=== PATIENT | female | born 1995 | race Caucasian/White ===

== ENCOUNTER 2017-03-02 11:44 | Emergency (ER) | payer BC, OTHER ==
[2017-03-02 11:51] VITALS: O2SAT 98
[2017-03-02] MEDS ORDERED: NS 1,000 ML IV ONE (12:56)
[2017-03-02] MEDS ORDERED: KETOROLAC 30 MG/1 ML SDV IVP ONE (12:56)
[2017-03-02] MEDS ORDERED: ONDANSETRON 4 MG/2 ML VIAL IVP ONE (12:56)
--- NOTE | 2017-03-02 13:00 | EDPHY ---
H & P Stated Complaint: Abd cramping, n/v; normal BM today;recent foreign travel Time Seen by Provider: 03/02/17 12:43 HPI/ROS: CHIEF COMPLAINT: Vomiting HISTORY OF PRESENT ILLNESS: This is a generally healthy 21-year-old female who presents with 3 days of nausea and vomiting. She had diarrhea on the 1st day of this illness, none since. She went 2 days without having a bowel movement and this morning had a loose stool. She has not seen blood in her stool. She has not had fever. She reports crampy abdominal pain and some low back pain. She has had headache on and off, none presently. Her headache is global and relieved by ibuprofen. She denies urinary symptoms. She does have some cramping in her upper thighs bilaterally. She returned from [place] 4 days ago. She was there for 6 weeks and traveled in the [place] early on during her trip. She was last in [place]. REVIEW OF SYSTEMS: A ten point review of systems was performed and is negative with the exception of the items mentioned in the HPI. Source: Patient Exam Limitations: No limitations - Personal History LMP (Females 10-55): 8-14 Days Ago Current Tetanus Diphtheria and Acellular Pertussis (TDAP): Yes - Medical/Surgical History Other PMH: healthy - Social History Smoking Status: Never smoked Alcohol Use: Occasionally Additional Social History: She is a student at the [employer]. Her father accompanies her today. - Physical Exam Exam: General Appearance: Alert. Vital signs reviewed. Blood pressure 125/66. Heart rate normal. Afebrile. Eyes: Pupils equal and round, no conjunctival injection, no discharge. Anicteric. ENT, Mouth: Mucous membranes are dry no oropharyngeal erythema or edema. Neck: No lymphadenopathy, supple. No meningeal signs. Respiratory: Lungs are clear to auscultation; no wheezes, rales, or rhonchi. Cardiovascular: Regular rate and rhythm; no murmur, rub, or gallop. Gastrointestinal: Abdomen is soft and nontender, no masses or organomegaly, bowel sounds normal. Skin: Warm and dry, no rashes on exposed skin, normal color. Back: Nontender to palpation over the thoracolumbar spine. No CVAT. Extremities: No lower extremity edema, no calf tenderness or swelling. Neurological: Alert and oriented. Moving all four extremities easily and equally. Psychiatric: Normal affect. Constitutional: Initial Vital Signs Temperature (C) 36.9 C 03/02/17 11:49 Heart Rate 79 03/02/17 11:49 Respiratory Rate 18 03/02/17 11:49 Blood Pressure 125/66 H 03/02/17 11:49 O2 Sat (%) 98 03/02/17 11:49 O2 Delivery Mode Room Air Allergies/Adverse Reactions: No Known Allergies Allergy (Unverified 03/02/17 11:51) Home Medications: Medication Instructions Recorded Ondansetron Odt [Zofran Odt 4 mg 4 mg PO Q4 PRN #10 tab 03/02/17 (RX)] Medical Decision Making ED Course/Re-evaluation: Healthy 21-year-old who recently returned from [place] and has had 3 days of nausea and vomiting. She does not have fever. She does not have abdominal pain on exam. No diarrhea at present. No headache at present. I do not suspect meningitis given this history and her physical examination. She is being given 1 L normal saline IV. She will receive Zofran 4 mg IV and Toradol 15 mg for leg cramps. Blood work sent. Blood work is normal except for a very mild elevation in her white blood cell count, just over 10,000. Urinalysis is normal. Chemistries are normal. test is negative. She has not had vomiting in the emergency department. Repeated exam shows that her abdomen remains soft and nontender. I suspect that this is a viral illness. I do not think that it is related to her recent travel. She is not having diarrhea. She has been rehydrated with normal saline intravenously and feels better. Differential Diagnosis: Differential diagnosis includes but is not limited to gastritis, pancreatitis, appendicitis, urinary tract infection, pyelonephritis, and viral illness. - Data Points Laboratory Results: Laboratory Results 03/02/17 12:35 03/02/17 12:35 Medications Given: Discontinued Medications Sodium Chloride (Ns) 1,000 mls @ 0 mls/hr IV EDNOW ONE; Wide Open PRN Reason: Protocol Stop: 03/02/17 12:57 Last Admin: 03/02/17 13:11 Dose: 1,000 mls Ketorolac Tromethamine (Toradol) 15 mg IVP EDNOW ONE Stop: 03/02/17 12:57 Last Admin: 03/02/17 13:11 Dose: 15 mg Ondansetron HCl (Zofran) 4 mg IVP EDNOW ONE Stop: 03/02/17 12:57 Last Admin: 03/02/17 13:11 Dose: 4 mg Departure - Departure Disposition: Home, Routine, Self-Care Clinical Impression: Vomiting Qualifiers: Vomiting type: unspecified Vomiting Intractability: non-intractable Nausea presence: with nausea Qualified Code(s): R11.2 - Nausea with vomiting, unspecified Condition: Good Instructions: Acute Nausea and Vomiting (ED) Additional Instructions: 1. Take Zofran as prescribed as needed for nausea. 2. Follow up with a primary care provider for symptoms unresolved. 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 3. Return for uncontrollable vomiting or other worsening of condition. Referrals: Lillian oMreira MD [Medical Doctor] - As per Instructions Prescriptions: Ondansetron Odt [Zofran Odt 4 mg (RX)] 4 mg PO Q4 PRN #10 tab PRN Reason: nausea
[2017-03-02 13:03] LABS: % IMMATURE GRANULYOCYTES 0.6 % (0.0-1.1); ABSOLUTE IMMATURE GRANULOCYTES 0.06 10^3/uL (0.00-0.10); ADD DIFF? NO; ADD MORPH? NO; ADD SCAN? NO; ATYPICAL LYMPHOCYTE FLAG 60 (0-99); FRAGMENT RBC FLAG 0 (0-99); HEMATOCRIT 46.7 % (38.0-47.0); HEMOGLOBIN 16.2 g/dL (12.6-16.3); LEFT SHIFT FLG 0 (0-99); LIPEMIA HEMOLYSIS FLAG 90 (0-99); MEAN CELL HEMOGLOBIN 31.8 pg (27.9-34.1); MEAN CELL HEMOGLOBIN CONCENTR. 34.7 g/dL (32.4-36.7); MEAN CELL VOLUME 91.7 fL (81.5-99.8); MEAN PLATELET VOLUME 9.2 fL (8.7-11.7); PLATELET CLUMPS FLAG 0 (0-99); PLATELET COUNT 242 10^3/uL (150-400); RED BLOOD CELL COUNT 5.09 10^6/uL (4.18-5.33); RED CELL DISTRIBUTION WIDTH 12.1 % (11.5-15.2)
[2017-03-02 13:09] LABS: ANION GAP 14 mEq/L (8-16); CALCIUM 9.5 mg/dL (8.5-10.4); CARBON DIOXIDE 22 mEq/l (22-31); CHLORIDE 104 mEq/L (97-110); CREATININE 0.7 mg/dL (0.6-1.0); GLOMERULAR FILTRATION RATE > 60; GLUCOSE 87 mg/dL (70-100); POTASSIUM 4.1 mEq/L (3.5-5.2); SODIUM 140 mEq/L (134-144)
[2017-03-02 13:49] LABS: COLOR PALE YELLOW; LEUKOCYTE ESTERASE,URINE NEGATIVE (NEGATIVE); NITRITE,URINE NEGATIVE (NEGATIVE)
[2017-03-02 13:58] VITALS: BP 128/73; PULSE 56; RESP 16
[2017-03-02 14:45] VITALS: TEMP 97.9
== END 2017-03-02 14:45 | disposition home or self-care (01) ==
DX: R11.2 Nausea with vomiting, unspecified (principal); E86.9 Volume depletion, unspecified
CPT/HCPCS: 96374; J1885; J2405

== ENCOUNTER 2018-01-28 23:09 | Emergency (ER) | payer BC ==
--- NOTE | 2018-01-28 23:44 | EDPHY ---
H & P Stated Complaint: returned from cruise sunday pm, has unusual skin coloring/rash , 5 days ago - Medical/Surgical History Hx Asthma: No Hx Chronic Respiratory Disease: No Hx Diabetes: No Hx Cardiac Disease: No Hx Renal Disease: No Hx Cirrhosis: No Hx Alcoholism: No Hx HIV/AIDS: No Hx Splenectomy or Spleen Trauma: No Other PMH: healthy - Social History Smoking Status: Current every day smoker Time Seen by Provider: 01/28/18 23:16 HPI/ROS: CHIEF COMPLAINT: Multiple skin lesions HISTORY OF PRESENT ILLNESS: 22-year-old female generally healthy complaining of 5 days of skin lesion to her bilateral lateral thighs as well as multiple other discrete lesions. She was on a cruise with left out [place], [place], returned today, was seen at an urgent care and in a airport in [place] and was told to go to an emergency department dialysis however decided to come home. She travelled to [facility], sleeping on the cruise ship, spending excursions on beaches. She came directly from [facility] to the emergency department. She describes that this rash has been present for the past 5 days, is nontender, denies intraoral lesions, denies nausea or vomiting, non weeping. Her bowel movements have been slightly looser than usual with no melena or hematochezia. Urinary habits normal. No headache. No fever or chills. No nausea or vomiting. No abdominal pain. No myalgias. No arthralgias. REVIEW OF SYSTEMS: A ten point review of systems was performed and is negative with the exception of the items mentioned in the HPI PAST MEDICAL & SURGICAL HISTORY: No pertinent medical or surgical history SOCIAL HISTORY:Nonsmoker. PHYSICAL EXAM (Prior to examination, patient consented to physical exam, hands were washed and my usual and customary physical exam procedures followed) 1) GENERAL: Well-developed, well-nourished, alert and oriented. Appears to be in no acute distress. 2) HEAD: Normocephalic, atraumatic 3) HEENT: Pupils equal, round, reactive to light bilaterally. Sclera anicteric. No ocular injection. Nasopharynx, oropharynx, clear, no lesions. Ears bilaterally with normal tympanic membranes. 4) NECK: Full range of motion, no meningeal signs. 5) LUNGS: Clear auscultation bilaterally, no wheezes, no rhonchi, no retractions. 6) HEART: Regular rate and rhythm, no murmur, no heave, no gallop. 7) ABDOMEN: No guarding, no rebound, no focal tenderness, negative McBurney's, negative Teran's, negative Rovsing's, negative peritoneal sign, no hepatomegaly. No splenomegaly. 8) MUSCULOSKELETAL: Moving all extremities, no focal areas of tenderness, no obvious trauma. No peripheral edema or discoloration. 9) BACK: No CVA tenderness, no midline vertebral tenderness, no fluctuance, no step-off, no obvious trauma, no visual or palpable abnormality. 10) SKIN: On the patient's bilateral lateral thighs she has linear blanchable non ecchymotic, hyper pigmented flat lesions . She has a similar lesion on her mid chest with similar qualities. She has similar lesion on her left ankle with similar qualities. Non ulcerated. 11) Psychiatric: Patient is oriented X 3, there is no agitation. DIFFERENTIAL DIAGNOSIS: In no particular include but limited to vasculitis, syphilis, Henoch Scholein Purpura (Bret Simon) Constitutional: Initial Vital Signs Temperature (C) 36.8 C 01/28/18 23:15 Heart Rate 70 01/28/18 23:15 Respiratory Rate 16 01/28/18 23:15 Blood Pressure 146/86 H 01/28/18 23:15 O2 Sat (%) 97 01/28/18 23:15 O2 Delivery Mode Room Air Allergies/Adverse Reactions: No Known Allergies Allergy (Verified 01/28/18 23:23) Home Medications: Medication Instructions Recorded NK [No Known Home Meds] 01/28/18 Medical Decision Making ED Course/Re-evaluation: The specific etiology of the patient's skin lesions is incompletely clear. Doubt cellulitis, doubt botfly, doubt cutaneous larvae, doubt HSP, doubt cutaneous larvae migrans . Will plan on obtaining laboratory studies and plan on follow-up with [facility] in the next 1-2 days. Patient has been informed that the specific pathology made clear itself more so in the next few days. The importance of follow-up has been stressed on numerous instances. Patient was also seen exam by Dr. Mia Salinas. (Bret Simon) I examined the patient myself. Other possibilities include contact dermatitis. I have reviewed her labs and they are unremarkable. UA did demonstrate microscopic hematuria, however the patient believes that she is beginning her menses. I have recommended that she use topical antibiotic ointment for now. She is to follow up with Infectious Disease if her symptoms continue. (Mia Salinas) - Data Points Laboratory Results: Laboratory Results 01/28/18 23:50 01/28/18 23:50 01/29/18 01/29/18 01/28/18 00:47 00:07 23:50 WBC RBC Hgb Hct MCV MCH MCHC RDW Plt Count MPV Neut % (Auto) Lymph % (Auto) [place] % (Auto) Eos % (Auto) Baso % (Auto) Nucleat RBC Rel Count Absolute Neuts (auto) Absolute Lymphs (auto) Absolute Monos (auto) Absolute Eos (auto) Absolute Basos (auto) Absolute Nucleated RBC Immature Gran % Immature Gran # ESR Sodium Potassium Chloride Carbon Dioxide Anion Gap BUN Creatinine Estimated GFR Glucose Calcium Total Bilirubin Conjugated Bilirubin Unconjugated Bilirubin AST ALT Alkaline Phosphatase C-Reactive Protein Total Protein Albumin Beta HCG, Qual NEGATIVE Urine Color YELLOW Urine Appearance CLEAR Urine pH 6.0 (5.0-7.5) Ur Specific [place] 1.008 (1.002-1.030) Urine Protein NEGATIVE (NEGATIVE) Urine Ketones NEGATIVE (NEGATIVE) Urine Blood 1+ H (NEGATIVE) Urine Nitrate NEGATIVE (NEGATIVE) Urine Bilirubin NEGATIVE (NEGATIVE) Urine Urobilinogen NEGATIVE EU EU (0.2-1.0) Ur Leukocyte Esterase NEGATIVE (NEGATIVE) Urine RBC 5-10 /hpf H /hpf (0-3) Urine WBC 1-3 /hpf /hpf (0-3) Ur Epithelial Cells TRACE /lpf /lpf (NONE-1+) Urine Bacteria 2+ /hpf H /hpf (NONE SEEN) Urine Mucus TRACE /lpf /lpf (NONE-1+) Urine Glucose NEGATIVE (NEGATIVE) RPR Pending 01/28/18 01/28/18 23:50 23:50 WBC 8.47 10^3/uL 10^3/uL (3.80-9.50) RBC 4.64 10^6/uL 10^6/uL (4.18-5.33) Hgb 14.9 g/dL g/dL (12.6-16.3) Hct 43.6 % % (38.0-47.0) MCV 94.0 fL fL (81.5-99.8) MCH 32.1 pg pg (27.9-34.1) MCHC 34.2 g/dL g/dL (32.4-36.7) RDW 12.2 % % (11.5-15.2) Plt Count 201 10^3/uL 10^3/uL (150-400) MPV 9.2 fL fL (8.7-11.7) Neut % (Auto) 56.7 % % (39.3-74.2) Lymph % (Auto) 32.8 % % (15.0-45.0) [place] % (Auto) 7.0 % % (4.5-13.0) Eos % (Auto) 2.4 % % (0.6-7.6) Baso % (Auto) 0.6 % % (0.3-1.7) Nucleat RBC Rel Count 0.0 % % (0.0-0.2) Absolute Neuts (auto) 4.81 10^3/uL 10^3/uL (1.70-6.50) Absolute Lymphs (auto) 2.78 10^3/uL 10^3/uL (1.00-3.00) Absolute Monos (auto) 0.59 10^3/uL 10^3/uL (0.30-0.80) Absolute Eos (auto) 0.20 10^3/uL 10^3/uL (0.03-0.40) Absolute Basos (auto) 0.05 10^3/uL 10^3/uL (0.02-0.10) Absolute Nucleated RBC 0.00 10^3/uL 10^3/uL (0-0.01) Immature Gran % 0.5 % % (0.0-1.1) Immature Gran # 0.04 10^3/uL 10^3/uL (0.00-0.10) ESR 3 MM/HR MM/HR (0-20) Sodium 143 mEq/L mEq/L (135-145) Potassium 3.9 mEq/L mEq/L (3.3-5.0) Chloride 102 mEq/L mEq/L (97-110) Carbon Dioxide 26 mEq/l mEq/l (22-31) Anion Gap 15 mEq/L mEq/L (8-16) BUN 13 mg/dL mg/dL (7-23) Creatinine 0.7 mg/dL mg/dL (0.6-1.0) Estimated GFR > 60 Glucose 82 mg/dL mg/dL (70-100) Calcium 9.5 mg/dL mg/dL (8.5-10.4) Total Bilirubin 0.4 mg/dL mg/dL (0.1-1.4) Conjugated Bilirubin 0.3 mg/dL mg/dL (0.0-0.5) Unconjugated Bilirubin 0.1 mg/dL mg/dL (0.0-1.1) AST 41 IU/L IU/L (14-46) ALT 48 IU/L IU/L (9-52) Alkaline Phosphatase 86 IU/L IU/L (38-126) C-Reactive Protein 7.9 mg/L mg/L (<10.0) Total Protein 7.6 g/dL g/dL (6.3-8.2) Albumin 4.4 g/dL g/dL (3.5-5.0) Beta HCG, Qual Urine Color Urine Appearance Urine pH Ur Specific [place] Urine Protein Urine Ketones Urine Blood Urine Nitrate Urine Bilirubin Urine Urobilinogen Ur Leukocyte Esterase Urine RBC Urine WBC Ur Epithelial Cells Urine Bacteria Urine Mucus Urine Glucose RPR Departure - Departure Disposition: Home, Routine, Self-Care Clinical Impression: Rash Condition: Good Instructions: Acute Rash (ED) Additional Instructions: Return to the emergency department if you develop fevers, flu-like symptoms, neck stiffness, worsening rash or any other symptoms that concern you. Referrals: [facility] (ED,. [Edm Groups for Call Sched] - 2-3 days, call for appt.
[2018-01-29 00:05] LABS: PLATELET COUNT 201 10^3/uL (150-400)
[2018-01-29 01:24] VITALS: BP 124/87
== END 2018-01-29 01:23 | disposition home or self-care (01) ==
DX: R21 Rash and other nonspecific skin eruption (principal); F17.200 Nicotine dependence, unspecified, uncomplicated